=== PATIENT | female | born 1965 | race Caucasian/White ===

== ENCOUNTER 2016-08-21 16:57 | Emergency (ER) | payer OTHER ==
[2016-08-21 17:18] VITALS: BP 170/87; PULSE 80; RESP 18; TEMP 98.4; O2SAT 95
--- NOTE | 2016-08-21 17:40 | EDPHY ---
H & P Time Seen by Provider: 08/21/16 17:08 HPI/ROS: This patient was struck in the dorsum of her right wrist and thumb from a fast pitch softball. She was attending her 61-year-old girls game and was in the bowl pain when the pitcher miss through ball while warming up striking this patient. She reports 7/10 pain to the affected area. The incident occurred approximately an hour prior to arrival and she reports ecchymosis and swelling. Pain worsens with movement. No other exacerbating factors. ROS: Neuro: No numbness or tingling Musculoskeletal: No other injuries. No gross deformity Integumentary: No lacerations abrasions. 5 point ROS is otherwise negative. Smoking Status: Never smoked Physical Exam: Physical Exam Vital signs are normal. General: No acute distress Lungs: No respiratory distress. Cardiac: Brisk capillary refill is intact throughout. Skin: No rash or pallor. Extremities: Atraumatic normal except for right upper extremity Right upper extremity: Patient has tenderness to the dorsum of her wrist. No anatomical snuffbox tenderness. She has tenderness to the 1st web space with mild swelling. No laxity of the thumb with AB duction or tenderness at the carpal metacarpal joint, or interphalangeal joint of the thumb. No pain with axial loading of the thumb She also has mild swelling and ecchymosis to the dorsum of the proximal 2nd metacarpal. She has associated tenderness. She retains good range of motion of her wrist without increase in pain. Neuro: Alert with no sensorimotor deficits in the affected extremity Initial differential diagnosis: Traumatic hematoma versus fracture Constitutional: Initial Vital Signs Temperature (C) 36.9 C 08/21/16 17:12 Heart Rate 80 08/21/16 17:12 Respiratory Rate 18 08/21/16 17:12 Blood Pressure 170/87 H 08/21/16 17:12 O2 Sat (%) 95 08/21/16 17:12 O2 Delivery Mode Room Air Allergies/Adverse Reactions: Penicillins Allergy (Verified 08/21/16 17:11) Sulfa (Sulfonamide Antibiotics) Allergy (Verified 08/21/16 17:11) IV dye Allergy (Uncoded 08/21/16 17:11) Home Medications: Medication Instructions Recorded Claritin 08/21/16 FLUoxetine 08/21/16 MDM/Departure - MDM Diagnostics: Wrist x-ray: Negative for fracture by my interpretation. I am also able to visualize the thumb on this x-ray and appreciate no thumb fracture. Imaging Results: Imaging Impressions Wrist X-Ray 08/21/16 17:10 Impression: Nothing acute identified. Imaging: I viewed and interpreted images myself ED Course/Re-evaluation: Ice, ibuprofen, Pj wrap I counseled the patient regarding traumatic hematoma. No evidence of fracture or other concerning findings. Patient will follow up with orthopedic physician in her home [facility] if she does not improve over the next 5-10 days as anticipated. - Depart Disposition: Home, Routine, Self-Care Clinical Impression: Traumatic hematoma of wrist Qualifiers: Encounter type: initial encounter Laterality: right Qualified Code(s): S60.211A - Contusion of right wrist, initial encounter Condition: Good Instructions: Hematoma (ED) Additional Instructions: Diagnosis: Traumatic hematoma of hand and wrist Plan: Pj wrap for comfort and to prevent significant swelling over the next few days Ice 20 minutes at a time 3 times a day or more for the next few days Ibuprofen Tylenol for discomfort if needed Bruising should gradually resolve over the next 10 days or so If you still have significant symptoms that persist beyond 10 days, follow up with your primary care physician for recheck. Referrals: NONE *PRIMARY CARE P,. [Primary Care Provider] - As per Instructions
== END 2016-08-21 17:47 | disposition home or self-care (01) ==
LOC: CED 16:57
DX: S60.211A Contusion of right wrist, initial encounter (principal); W21.07XA Struck by softball, initial encounter; Y99.8 Other external cause status; Y93.64 Activity, baseball
CPT/HCPCS: 73110-PO